=== PATIENT | male | born 1955 | race Caucasian/White ===

== ENCOUNTER → 2016-12-07 | Day surgery (SDC) | payer OTHER ==
[~2016-12-07] VITALS: Ht 180.3 cm; Wt 80.9 kg
[~2016-12-07] MED LIST: AMARYL2 MG PO; ASPIRIN (CHILDR81 MG PO; BUMEX1 MG PO; COLCHICINE0.6 MG PO; COREG6.25 MG PO; DEPAKOTE DELAY500 MG PO; FEOSOL325 MG PO; FUROSEMIDE40 MG PO; GLUCOPHAGE500 MG PO; HYDRALAZINE HC100 MG PO; IMDUR30 MG PO; ISORDIL30 MG PO; JANUVIA 100 MG100 MG PO; LEVEMIR FL100 UNIT/1 SUB-Q; LEVOTHYROXINE50 MCG PO; MAGOX 400400 MG PO; MIRALAX17 GM PO; MIRAPEX0.25 MG PO; NORCO 5-325 MG1 TAB PO; NORCO 5-325 TA1 EACH PO; NORVASC10 MG PO; PLAVIX75 MG PO; PRAVACHOL40 MG PO; PROTONIX40 MG PO; PROVENTIL OR V6.7 GM INH; ROCALTROL0.25 MCG PO; TYLENOL325 MG PO; ULORIC40 MG PO
--- NOTE | ~2016-12-07 | OR ---
PATIENT'S NAME: GROVER DELANEY [facility] AGE: 61 Y [address] ROOM: [place] [address] LOCATION: [facility] [place] ADMIT DATE: 12/07/2016 OR/Procedure Report DISCHARGE DATE: FAMILY PHYSICIAN: Avani Duvall MD ATTENDING PHYSICIAN: MIGUE PERAZA SURGEON: Migue Peraza MD [employer]TE SALES SPECIALIST: DATE OF PROCEDURE: 12/07/2016 PREOPERATIVE DIAGNOSIS: End-stage renal disease. POSTOPERATIVE DIAGNOSIS: End-stage renal disease. PROCEDURE: Left arm brachiocephalic AV fistula. EMPLOYMENT LAW ATTORNEY: ELSA Nichols. ANESTHESIA: General. ESTIMATED BLOOD LOSS: 5 mL. OPERATIVE FINDINGS: Good thrill and bruit in the fistula. Strong radial and ulnar signals at the end of the case. PROCEDURE: The patient was brought to the operating room, placed under general anesthesia, prepped and draped in a sterile manner. Preoperative time- out was performed. The patient received preoperative antibiotics. We made a standard incision 2 cm proximal to the antecubital fossa, dissected down the fascia, incised the fascia in a longitudinal manner, dissected out the brachial artery in a 360-degree fashion. We performed the same maneuvers on the cephalic vein, ligated it, and transected it distally. We gave 5000 units of heparin. We clamped proximal and distally on the artery, made an arteriotomy to a size of 4 mm using an 11 blade as well as Marrero scissors. We then did a standard 6-0 Prolene anastomosis from the vein to the artery. We removed the clamps. There was excellent flow into the vein and a strong bruit signal confirmed with the use of Doppler. We also confirmed the presence of radial and ulnar signals. The heparin was reversed with protamine. Deep layers were closed with 2-0 and 3-0 Vicryl. Thrombin was used locally in the wound for hemostasis. The skin was closed with Monocryl. The patient tolerated the procedure well and transferred to recovery room and then home later that day. PATIENT'S NAME: GROVER DELANEY [facility] AGE: 61 Y [address] ROOM: [place], [place] [address] LOCATION: [facility] [place] ADMIT DATE: 12/07/2016 OR/Procedure Report DISCHARGE DATE: FAMILY PHYSICIAN: Avani Duvall MD ATTENDING PHYSICIAN: MIGUE PERAZA MD FKM/modl /[id number] d: 12/07/161957 t: 12/08/16 1254, OPERATIVE SUMMARY
[2016-12-07 07:19] LABS: BASOPHIL # 0.1 K/uL (0.0-0.2); BASOPHIL % 0.8 %; EOSINOPHIL # 0.4 K/uL (0.0-0.5); EOSINOPHIL % 4.6 %; HEMATOCRIT 27.8 % (37.0-53.0); HEMOGLOBIN 9.2 g/dL (11.0-16.0); IMMATURE GRANULOCYTE % 0.5 %; LYMPHOCYTE % 12.8 %; MCH 30.8 pg (27.0-34.0); MCHC 33.1 gm/dL (32.0-36.5); MONOCYTE % 13.2 %; MPV 10.3 fl (9.4-12.4); NEUTROPHIL # (ANC) 5.2 K/uL (1.4-9.0); NEUTROPHIL % 68.1 %; NRBC % 0 /100WBC (0-0.00); PLATELET COUNT 157 K/uL (150-450); RBC 2.99 M/uL (3.50-5.50); RDW-CV 13.9 % (11.9-14.6); WBC 7.6 K/uL (4.0-11.0)
[2016-12-07 07:24] LABS: INR - (THERAPEUTIC) 1.08 (0.92-1.07); PROTIME 11.3 SECONDS (9.8-11.4)
[2016-12-07 07:34] LABS: ALBUMIN 2.8 gm/dL (3.5-5.0); ANION GAP 15.6 (10.0-19.0); CALCIUM 8.2 mg/dL (8.5-10.5); CREATININE 3.8 mg/dL (0.6-1.3); POTASSIUM 3.6 mMol/L (3.7-5.1); TOTAL BILIRUBIN 0.5 mg/dL (0.0-1.5); TOTAL PROTEIN 5.8 g/dL (6.0-8.4)
== END | disposition disaster alternative care site (69) ==
LOC: GPOC 12-01 13:00 → GSDC 06:22
PROVIDERS: Surgery Vascular Surgery
PROC: 03180ZD Bypass Left Brachial Artery to Upper Arm Vein, Open Approach (ICD-10-PCS; principal; 2016-12-07)
DX: E11.22 Type 2 diabetes mellitus with diabetic chronic kidney disease (principal); N18.6 End stage renal disease; I25.10 Atherosclerotic heart disease of native coronary artery without angina pectoris; I25.2 Old myocardial infarction; I49.3 Ventricular premature depolarization; Z87.891 Personal history of nicotine dependence
CPT/HCPCS: J1644; J2001; J2720; J7030

== ENCOUNTER → 2017-01-22 | Outpatient (CLI) | payer OTHER | END | disposition disaster alternative care site (69) | LOC: LGSMG 13:31 | DX: N18.4 Chronic kidney disease, stage 4 (severe) (principal) ==